=== PATIENT | male | born 1995 | race African-American/Black ===

== ENCOUNTER 2020-09-09 11:41 | Emergency (ER) | payer SELFPAY ==
[~2020-09-09] VITALS: Ht 172.7 cm; Wt 63.6 kg
[~2020-09-09 11:41] MED LIST: ADVAIR IH; ALBUTEROL0.09 MG/A1 IH; CEPHALEXIN250 M1 PO; CEPHALEXIN500 M1 PO; CLEOCIN HCL300 MG PO; GENTAMICIN EYE D5 ML OP; NO HOME MEDICATIONS; PEPCID 20MG TAB20 MG PO; PHENERGAN 25 TA25 MG PO; SEPTRA DS 8001 TAB PO; SEPTRA SUS200/5-40/5 PO; SINGULAIR; SINGULAIR PO; VENTOLIN0.09 MG IH; ZITHROMAX Z PA250 MG PO; ZYRTEC
[2020-09-09 11:51] VITALS: TEMP 100.8
[2020-09-09 12:33] LABS: BASO % 0.2 % (0.0-2.0); EOS % 0.1 % (0-4.0); GRAN # 7.7 (1.4-6.5); GRAN % 84.9 % (42.2-75.2); HEMATOCRIT 43.9 % (42.0-52.0); HEMOGLOBIN 14.8 g/dl (13.5-18.0); LYMPH # 0.5 (1.2-3.4); LYMPH % 5.8 % (20.0-51.0); MEAN CELL VOLUME 91 fl (80.0-100.0); MEAN CORPUSCULAR HEMOGLOBIN 31 pg (27.0-31.0); MEAN CORPUSCULAR HGB CONC 34 g/dl (33.0-37.0); MEAN PLATELET VOLUME 9.9 fl (7.4-10.4); MONO # 0.8 (0.1-0.6); MONO % 8.6 % (1.7-9.3); PLATELET COUNT 231 K/mm3 (130-400); RED BLOOD COUNT 4.84 M/mm3 (4.20-5.60); REDCELL DISTRIBUTION WIDTH-CV 14.3 % (11.5-14.5)
[2020-09-09 12:43] LABS: ALBUMIN 4.5 gm/dL (3.5-5.0); BILIRUBIN,TOTAL 1.3 mg/dL (0.0-1.0); CALCIUM 9.1 mg/dL (8.4-10.2); CREATININE, serum 0.72 (0.66-1.25); POTASSIUM 3.4 mmol/L (3.4-5.0); TOTAL PROTEIN 7.9 gm/dL (6.4-8.2)
[2020-09-09] MEDS ORDERED: ZITHROMAX Z PA250 MG PO (14:43)
[2020-09-09] MEDS ORDERED: DECADRON 4MG TAB4 MG PO (14:43)
[2020-09-09 14:45] VITALS: BP 118/80; PULSE 73
[2020-09-09 14:47] LABS: STREP SCREEN NEGATIVE
== END 2020-09-09 15:05 | disposition home or self-care (01) ==
LOC: COL.ER 11:41
PROVIDERS: Nurse Practitioner Primary Care
DX: Z20.828 Contact with and (suspected) exposure to other viral communicable diseases (principal); J45.909 Unspecified asthma, uncomplicated
CPT/HCPCS: J1885; J7030

== ENCOUNTER 2020-09-17 11:03 | Emergency (ER) | payer SELFPAY ==
[~2020-09-17] VITALS: Ht 172.7 cm; Wt 63.6 kg
[~2020-09-17 11:03] MED LIST changes: +DECADRON 4MG TAB4 MG PO
[2020-09-17] MEDS ORDERED: NORCO 325 MG-51 TAB PO (16:04)
[2020-09-17] MEDS ORDERED: AMOXICILLIN 8751 TAB PO (16:04)
[2020-09-17 16:15] VITALS: BP 126/69; PULSE 72; TEMP 97.6
== END 2020-09-17 16:18 | disposition home or self-care (01) ==
LOC: COL.ER 11:03
DX: S02.609A Fracture of mandible, unspecified, initial encounter for closed fracture (principal); J45.909 Unspecified asthma, uncomplicated; W19.XXXA Unspecified fall, initial encounter

== ENCOUNTER → 2021-01-31 | Outpatient (CLI) | payer OTHER ==
[~2021-01-31] MED LIST changes: +AMOXICILLIN 8751 TAB PO; +NORCO 325 MG-51 TAB PO; +PERCOCET 325 MG1 TA2 PO
== END ==
LOC: COL.RAD 15:54
DX: G95.89 Other specified diseases of spinal cord (principal); M54.5 Low back pain; M54.2 Cervicalgia; R07.89 Other chest pain

== ENCOUNTER 2021-07-27 12:43 | Emergency (ER) | payer SELFPAY ==
[~2021-07-27 12:43] MED LIST changes: -PERCOCET 325 MG1 TA2 PO
== END 2021-07-27 14:05 | disposition left against medical advice (07) ==
LOC: COL.ER 12:43
DX: R69 Illness, unspecified (principal)

== ENCOUNTER 2021-09-13 09:59 | Emergency (ER) | payer SELFPAY ==
[~2021-09-13] VITALS: Ht 170.2 cm; Wt 59.1 kg
[2021-09-13 10:00] VITALS: TEMP 98.3
[2021-09-13 10:47] LABS: HEMATOCRIT 40.2 % (42.0-52.0); HEMOGLOBIN 13.4 g/dl (13.5-18.0); MEAN CELL VOLUME 94 fl (80.0-100.0); MEAN CORPUSCULAR HEMOGLOBIN 31 pg (27.0-31.0); MEAN CORPUSCULAR HGB CONC 33 g/dl (33.0-37.0); MEAN PLATELET VOLUME 9.7 fl (7.4-10.4); PLATELET COUNT 368 K/mm3 (130-400); RED BLOOD COUNT 4.29 M/mm3 (4.20-5.60); REDCELL DISTRIBUTION WIDTH-CV 15.1 % (11.5-14.5)
[2021-09-13 10:59] LABS: COLLECTION METHOD CLEAN CATCH
[2021-09-13 11:08] LABS: ALBUMIN 4.3 gm/dL (3.5-5.0); BILIRUBIN,TOTAL 1.3 mg/dL (0.2-1.2); CALCIUM 9.6 mg/dL (8.4-10.2); CREATININE, serum 0.73 mg/dL (0.72-1.25); TOTAL PROTEIN 7.6 gm/dL (6.2-8.1)
[2021-09-13 11:21] LABS: MUCOUS Present /lpf; PH 6 (5-8); SQUAMOUS EPITHELIAL 0-2 /hpf; URINE APPEARANCE Hazy; URINE BACTERIA None Seen /hpf; URINE BILIRUBIN Negative (NEGATIVE); URINE BLOOD 2+ (NEGATIVE); URINE COLOR Yellow; URINE GLUCOSE Negative (NEGATIVE); URINE KETONE 2+ (NEGATIVE); URINE LEUKOCYTE ESTERASE Negative (NEGATIVE); URINE NITRATE Negative (NEGATIVE); URINE PROTEIN(semi-quant) 2+ (NEGATIVE); URINE RBC 0-2 /hpf
[2021-09-13 11:26] LABS: BAND 4 % (0-10); BASOPHIL 1 % (0-2); LYMPHOCYTE 2 % (20.0-51.0); NEUTROPHILS 88 % (42.0-75.2)
[2021-09-13 11:27] LABS: PLATELET ESTIMATE NORMAL (NORMAL)
[2021-09-13 11:28] LABS: STOMATOCYTE 2+
[2021-09-13 11:29] LABS: TARGET CELLS 1+
[2021-09-13] MEDS ORDERED: PERCOCET 325 MG1 TA2 PO (13:47)
[2021-09-13 14:38] VITALS: BP 127/77; PULSE 89
== END 2021-09-13 14:38 | disposition home or self-care (01) ==
LOC: COL.ER 09:59
PROVIDERS: Physician Assistant
DX: K85.20 Alcohol induced acute pancreatitis without necrosis or infection (principal); F17.210 Nicotine dependence, cigarettes, uncomplicated; Z20.822 Contact with and (suspected) exposure to COVID-19
CPT/HCPCS: J1885; J2270; J7030; Q9967

== ENCOUNTER 2021-09-30 18:14 | Emergency (ER) | payer SELFPAY ==
[~2021-09-30] VITALS: Ht 170.2 cm; Wt 63.6 kg
[~2021-09-30 18:14] MED LIST changes: +PERCOCET 325 MG1 TA2 PO
[2021-09-30 20:37] VITALS: BP 139/83; PULSE 81; TEMP 98.7
== END 2021-09-30 20:37 | disposition home or self-care (01) ==
LOC: COL.ER 18:14
DX: S52.512A Displaced fracture of left radial styloid process, initial encounter for closed fracture (principal); F17.210 Nicotine dependence, cigarettes, uncomplicated; W01.0XXA Fall on same level from slipping, tripping and stumbling without subsequent striking against object, initial encounter; Y93.89 Activity, other specified

== ENCOUNTER 2023-01-26 04:37 | Emergency (ER) | payer SELFPAY ==
--- NOTE | 2023-01-26 04:52 | NUR ---
PT ARRIVED VIA EMS ALREADY INTUBATED, 25 AT THE TEETH WITH EQUAL BS AND CHEST RISE.
== END 2023-01-26 09:00 | disposition expired ==
LOC: COL.ER 04:37
DX: I46.9 Cardiac arrest, cause unspecified (principal); F17.200 Nicotine dependence, unspecified, uncomplicated; Z79.899 Other long term (current) drug therapy